=== PATIENT | female | born 1990 | race Caucasian/White ===

== ENCOUNTER 2017-08-04 01:16 | Emergency (ER) | payer OTHER ==
[~2017-08-04] VITALS: Ht 154.9 cm; Wt 74.8 kg
[2017-08-04 01:37] VITALS: BP 127/76
== END 2017-08-04 01:40 | disposition left against medical advice (07) ==
LOC: EDBD 01:16 → ER 01:16
DX: R41.82 Altered mental status, unspecified (principal); Z53.21 Procedure and treatment not carried out due to patient leaving prior to being seen by health care provider